=== PATIENT | female | born 1960 | race Caucasian/White ===

== ENCOUNTER → 2025-01-28 11:56 | Outpatient (REF) | payer BC, MEDICARE, SELFPAY ==
[2025-01-28 12:35] VITALS: BP 121/80; BP_SYST 87
[2025-01-28 13:35] VITALS: BP 132/75; BP_SYST 78
[2025-01-28 13:41] VITALS: BP 132/75
--- NOTE | 2025-01-28 14:01 | PTCARENOTE ---
IRAD note: Aspirated 1-2ml thick blood tinged fluid from right knee cyst. clarified with that aspirated Fluid does not need to send to lab for analysis.
== END ==
LOC: RADI 11:56
PROVIDERS: ATTENDING PHYSICIAN Orthopaedic Surgery Sports Medicine; FAMILY PHYSICIAN Nurse Practitioner Family
DX: M71.21 Synovial cyst of popliteal space [Baker], right knee (principal); Z96.651 Presence of right artificial knee joint
CPT/HCPCS: 20612